=== PATIENT | male | born 2000 | race Caucasian/White ===

== ENCOUNTER 2021-04-30 11:19 | Emergency (ER) | payer OTHER ==
[~2021-04-30] VITALS: Ht 180.3 cm; Wt 72.6 kg
[2021-04-30 11:29] VITALS: BP 119/76
--- NOTE | 2021-04-30 11:34 | NUR ---
SANTO. HANDED ON URINE CUP.
[2021-04-30 12:56] LABS: BASOPHILS % (AUTO) 0.6 % (0.0-2.0); EOSINOPHILS # (AUTO) 0.2 K/uL (0-0.4); EOSINOPHILS % (AUTO) 3.3 % (0.0-4.0); HEMATOCRIT 46.1 % (36-52); HEMOGLOBIN 15.2 g/dL (12.0-18.0); LYMPHOCYTES # (AUTO) 1.6 K/uL (2.0-11.5); LYMPHOCYTES % (AUTO) 33.6 % (20.5-51.1); MEAN CORPUSCULAR HEMOGLOBIN 29 pg (27-31); MEAN CORPUSCULAR HGB CONC 33 g/dL (33-37); MEAN CORPUSCULAR VOLUME 86.3 fL (80-94); MONOCYTES # (AUTO) 0.5 K/uL (0.8-1.0); MONOCYTES % (AUTO) 10.2 % (1.7-9.3); NEUTROPHILS # (AUTO) 2.4 K/uL (1.8-7.7); NEUTROPHILS % (AUTO) 52.3 % (42.2-75.2); PLATELET COUNT (AUTO) 247 K/uL (140-450); RED BLOOD CELL COUNT(AUTO) 5.34 MIL/uL (4.20-6.10); WHITE BLOOD COUNT (AUTO) 4.6 K/uL (4.5-11.0)
[2021-04-30 13:09] LABS: ALBUMIN 4.5 g/dL (3.4-5.0); ANION GAP 10.3 (8-16); CARBON DIOXIDE 29.1 mmol/L (21-32); CREATININE 0.8 mg/dL (0.6-1.3); POTASSIUM 4.4 mmol/L (3.5-5.1); TOTAL BILIRUBIN 0.8 mg/dL (0.0-1.0)
--- NOTE | 2021-04-30 13:55 | NUR ---
PT TAKEN TO BED 12.
--- NOTE | 2021-04-30 14:16 | NUR ---
PATIENT PRESENTS TO ED WITH DIZZINESS AND NAUSEA X4 DAYS . PT DENIES ANY VOMITING OR DIARRHEA. SKIN IS PINK/WARM/DRY; AAOX4 WITH EVEN AND STEADY GAIT; LUNGS CLEAR BL; HR EVEN AND REGULAR; PT DENIES ANY FEVER, CP, SOB, OR COUGH AT THIS TIME; PATIENT STATES PAIN OF 0/10 AT THIS TIME; VSS; PATIENT POSITIONED FOR COMFORT; HOB ELEVATED; BEDRAILS UP X2; BED DOWN. ER MD MADE AWARE OF PT STATUS.
[2021-04-30] MEDS ORDERED: ONDANSETRON 4 MG ODT PO ONE (14:25)
[2021-04-30] MEDS ORDERED: MECLIZINE 25 MG TAB PO ONE (14:25)
[2021-04-30] MEDS ORDERED: MECL-303 PO (14:26)
[2021-04-30] MEDS ORDERED: ONDA-24 SL (14:26)
[2021-04-30 15:04] VITALS: BP 119/76
--- NOTE | 2021-04-30 15:04 | NUR ---
Patient discharged with v/s stable. Written and verbal after care instructions given and explained. Patient alert, oriented and verbalized understanding of instructions. Ambulatory with steady gait. All questions addressed prior to discharge. ID band removed. Patient advised to follow up with PMD. Rx of Zofran ODT and Meclizine given. Patient educated on indication of medication including possible reaction and side effects. Opportunity to ask questions provided and answered.
== END 2021-04-30 15:04 | disposition home or self-care (01) ==
LOC: MED 11:19
DX: R42 Dizziness and giddiness (principal); Z79.899 Other long term (current) drug therapy
CPT/HCPCS: 36415; 80053; 81002; 83690; 85025; 99283; J8597; Q0162

== ENCOUNTER 2024-05-15 10:50 | Emergency (ER) | payer MEDICAID, OTHER ==
[~2024-05-15] VITALS: Ht 182.9 cm; Wt 81.6 kg
[~2024-05-15 10:50] MED LIST: MECL-303 PO; ONDA-188 SL
[2024-05-15 11:00] VITALS: BP 131/91; PULSE 75; RESP 20; TEMP 98.1; O2SAT 98
[2024-05-15] MEDS: IBUPROFEN 600 MG TAB PO ONE (12:49)
[2024-05-15] MEDS ORDERED: IBUP-2213 PO (12:50)
--- NOTE | 2024-05-15 13:05 | NUR ---
Patient discharged with v/s stable. Written and verbal after care instructions given FOR TOE FRACTURE Patient alert, oriented and verbalized understanding of instructions. Ambulatory with steady gait. All questions addressed prior to discharge. ID band removed. Patient advised to follow up with PMD. Rx of MOTRIN given. Opportunity to ask questions provided and answered. WORK NOTE PROVIDED COPY OF XRAY PROVIDED
== END 2024-05-15 13:05 | disposition home or self-care (01) ==
LOC: MED 10:50
DX: S92.514A Nondisplaced fracture of proximal phalanx of right lesser toe(s), initial encounter for closed fracture (principal); Z79.899 Other long term (current) drug therapy; W22.8XXA Striking against or struck by other objects, initial encounter; Y92.89 Other specified places as the place of occurrence of the external cause; Y93.89 Activity, other specified; Y99.8 Other external cause status
CPT/HCPCS: 73630; 99283